=== PATIENT | male | born 1990 | race Caucasian/White ===

== ENCOUNTER 2023-09-11 14:13 | Emergency (ER) | payer OTHER ==
[~2023-09-11] VITALS: Ht 175.3 cm; Wt 77.1 kg
[2023-09-11] MEDS ORDERED: NS 1,000 ML IV SCH (14:30)
[2023-09-11] MEDS ORDERED: PHENobarbital Sodium 65MG / ML 1ML Vial IV ONE ×2 (14:30→15:45)
[2023-09-11] MEDS ORDERED: LORazepam 2 MG/ML 1ML Injection IV ONE ×2 (14:30→15:45)
[2023-09-11 14:53] LABS: BASOPHILS ABSOLUTE AUTO 0.08 K/mm3 (0.00-0.23); BASOPHILS PERCENT AUTO 1 % (0-2); EOSINOPHILS ABSOLUTE AUTO 0.35 K/mm3 (0.00-0.68); EOSINOPHILS PERCENT AUTO 4 % (0-6); Hematocrit 45.3 % (37.0-53.0); Hemoglobin 16.1 g/dL (13.5-17.5); IMMATURE GRAN ABSOLUTE AUTO 0.02 K/mm3 (0.00-0.10); IMMATURE GRAN PERCENT AUTO 0 % (0-1); LYMPHOCYTES ABSOLUTE AUTO 0.93 K/mm3 (0.84-5.20); LYMPHOCYTES PERCENT AUTO 11 % (21-46); MONOCYTES ABSOLUTE AUTO 0.84 K/mm3 (0.16-1.47); MONOCYTES PERCENT AUTO 10 % (4-13); Mean Corpuscular HGB 36.4 pg (26.0-34.0); Mean Corpuscular HGB Conc 35.5 g/dL (31.5-36.5); Mean Corpuscular Volume 103 fL (80-100); Mean Platelet Volume 12.1 fL (9.1-12.4); NEUTROPHILS ABSOLUTE AUTO 6.66 K/mm3 (1.96-9.15); NEUTROPHILS PERCENT AUTO 75 % (41-73); Platelet Count 224 K/mm3 (150-400); RDW Coefficient Variation 16.9 % (11.7-14.2); RDW Standard Deviation 64.5 fL (35.1-46.3); Red Blood Cell Count 4.42 M/mm3 (4.30-5.90); White Blood Cell Count 8.88 K/mm3 (4.00-11.30)
[2023-09-11] MEDS ORDERED: PHENobarbitaL sodium 130 MG/ML VIAL IV ONE (15:05)
[2023-09-11 15:14] LABS: Albumin, Blood 3.1 g/dL (3.4-5.0); Albumin/Globulin Ratio 0.8 (0.8-1.8); Bilirubin, Total 4.9 mg/dL (0.1-1.0); Bun/Creatinine Ratio 6.7 (12.0-20.0); Calcium, Blood 8.9 mg/dL (8.5-10.1); Creatinine, Blood 0.6 mg/dL (0.60-1.20); Potassium, Blood 3.7 mmol/L (3.5-5.5); Total Protein, Blood 7.1 g/dL (6.4-8.2)
[2023-09-11] MEDS ORDERED: CHLO25 PO (16:45)
== END 2023-09-11 18:00 | disposition home or self-care (01) ==
LOC: ER 14:13
PROVIDERS: Emergency Medicine
DX: F10.139 Alcohol abuse with withdrawal, unspecified (principal)
CPT/HCPCS: 80053; 83690; 85025; 93005; 93010; 96374; 96375; 96376; 99285-25; J2060; J2560; J7030

== ENCOUNTER 2025-02-19 21:07 | Emergency (ER) | payer OTHER ==
[~2025-02-19] VITALS: Ht 175.3 cm; Wt 90.7 kg
[~2025-02-19 21:07] MED LIST: AMOCLA875 PO; CHLO25 PO
[2025-02-19] MEDS ORDERED: Trimethoprim/Sulfamethoxazole DS Tab PO ONE (21:30)
[2025-02-19] MEDS ORDERED: CEPH500 PO (21:31)
[2025-02-19] MEDS ORDERED: BACTRIM DS TAB1 EAC1 PO (21:31)
== END 2025-02-20 01:27 | disposition home or self-care (01) ==
LOC: ER 21:07
DX: L03.317 Cellulitis of buttock (principal); L02.31 Cutaneous abscess of buttock; Z79.2 Long term (current) use of antibiotics; F17.290 Nicotine dependence, other tobacco product, uncomplicated
CPT/HCPCS: 99282